=== PATIENT | female | born 1990 | race American Indian/Alaskan Native ===

== ENCOUNTER 2019-12-12 07:59 | Emergency (ER) | payer MEDICAID, SELFPAY ==
[2019-12-12 08:03] VITALS: BP 110/55; PULSE 80; RESP 20; TEMP 36.2; O2SAT 98
--- NOTE | 2019-12-12 08:15 | DI.US_ITS ---
EXAM: US PELVIS TRANSVAGINAL CLINICAL HISTORY: Left side pelvic pain TECHNIQUE: Ultrasound performed using standard protocol. COMPARISON: No exams were available for comparison FINDINGS: Pelvic ultrasound was performed transabdominally and transvaginally. Please see the accompanying wilner a sheet for measurements of the pelvic structures. Kidneys have normal appearance on limited scanning. The ovaries have a normal follicular appearance. There are couple of apparent calcifications noted i n the right ovary, nonspecific. No ovarian enlargement or vascular flow abnormality seen. No free fluid in the cul-de-sac. Uterus has a heterogeneous appearance of the myometrium. Endometrial stripe is about 9 millimeters i n thickness. Some nabothian cysts are noted. Lower uterine segment septated cyst may represent nabo thian cyst or degenerated fibroid. IMPRESSION: No evidence of acute pelvic process. DATA REPOSITORY:
--- NOTE | 2019-12-12 08:24 | ED.GENADUL_ITS ---
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 Return to ED sooner if any worsening or concerns. Increase oral fluids. Please take Tylenol or Ibuprofen with food every 4-6 hours as needed for pain and swelling. Your placed on a follow-up callback list for case management to help establish primary care provider and discuss community resources. Medical Decision Making 29-year-old homeless female presents with left lower quadrant abdominal pain which began approximately 45 minutes ago. She states she has a history of ovarian cyst and uterine fibroids. Denies any vaginal bleeding or vaginal discharge. No dysuria. Denies any nausea vomiting does report some soft stools. 0955: Spoke with Dr. Mcdowell regarding pelvic US. WNL, no ovarian cyst per radiologist. 1002: Patient re-evaluated. Is in no acute distress, patient sleeping. Vital signs stable, breathing eupneic. Exam(s) a US:US pelvis & transvaginal EXAM: US PELVIS TRANSVAGINAL CLINICAL HISTORY: Left side pelvic pain TECHNIQUE: Ultrasound performed using standard protocol. COMPARISON: No exams were available for comparison FINDINGS: Pelvic ultrasound was performed transabdominally and transvaginally. Please see the accompanying data sheet for measurements of the pelvic structures. Kidneys have normal appearance on limited scanning. The ovaries have a normal follicular appearance. There are couple of apparent calcifications noted in the right ovary, nonspecific. No ovarian enlargement or vascular flow abnormality seen. No free fluid in the cul-de-sac. Uterus has a heterogeneous appearance of the myometrium. Endometrial stripe is about 9 millimeters in thickness. Some nabothian cysts are noted. Lower saranya rine segment septated cyst may represent nabothian cyst or degenerated fibroid. IMPRESSION: No evidence of acute pelvic process. DATA REPOSITORY: Ordered By: Reyna Ennis CC: 1130: On patient re-evaluation, she is complaining of itching noted to her face and legs. It is requesting the Benadryl. Benadryl 25 mg p.o. ordered. She also is requesting food and to discuss options with case management doing due to being homeless. Care management called and left voicemail. The patient denies any recent foreign travel or contact with recent immigrants, Travelers, or peoples of [place] or [facility]. The patient denies any recent travel to high risk countries or high risk areas in the [place], or other areas of noted or significant coronavirus infection. At this time I feel patient is safe for discharge, given instructions for abdominal pain discussed strict return instructions and red flags including worsening pain, fever nausea vomiting diarrhea. She was placed on care management call list to establish PCP. Given community connection phone number for community resources. Urine is negative for leukocytes or nitrites, CBC and CMP are both within normal limits no leukocytosis. Pelvic ultrasound is within normal limits as well. Differential diagnosis includes diverticulitis, small bowel obstruction, gastroenteritis, UTI, menstrual cramps, ovarian cyst, uterine fibroids. Lab Data Lab results reviewed: Yes I reviewed the patient's lab results. HPI General Mode of arrival: ambulatory . Date/Time Provider Initiated Documentation: 12/12/19 08:09 . Limitations to Documentation: no limitations . Information obtained by: patient . HPI Narrative: 29-year-old homeless female presents with left lower quadrant abdominal pain which began approximately 45 minutes ago. She states she has a history of ovarian cyst and uterine fibroids. Denies any vaginal bleeding or vaginal discharge. No dysuria. Denies any nausea vomiting does report some soft stools. 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 HEENT: Denies trauma, headaches, blurry vision, nasal discharge, sore throat, trouble swallowing. Chest: Denies chest pain, palpitations, irregular rhythm, hypertension. Respiratory: Denies Shortness of breath, cough, hemoptysis. GI: Denies nausea, vomiting, diarrhea, constipation. : Denies dysuria, hematuria, positive left lower quadrant abdominal pain. Neuro: Denies dizziness, blurry vision, weakness, syncope, headache or facial numbness. Hematologic: Denies easy bruising, intolerance to heat or cold, hair loss. [facility] Social History Smoking/Tobacco Use Status: Current every day Tobacco Type: cigarettes Alcohol Intake: current Alcohol Intake frequency: a few times a week Drug use: Daily Substance use type: marijuana Do you feel safe in your relationship?: Yes Additional Social history: homeless Exam Narrative Exam Narrative: Constitutional: Allert and oriented x3. Appears stated age. Normal body habitus. Head: Normocephalic, no trauma. Eyes: Pupils PERRLA, Red reflex noted, EOM's intact. Eyelids symmetrical withour lesions, discharge, or swelling. ENT: Bilateral TM's WNL, External ear normal to inspection, no mastoid TTP, swelling, or erythema, Nasal turbinates WNL, no nasal discharge. Normal dentition, Posterior pharynx WNL, no exudate. Chest: RRR, Normal S1, S2, distal pulses intact. Resp: Lungs clear to auscultation bilaterally, no wheezes, rales, or rhonchi. GI: Left lower quadrant TTP abdomen soft bowel sounds hypoactive. Musculoskeletal: Normal gait, 5/5 strength to all four extremities. Skin: No suspicious rashes or lesions. Capillary refill ?2 sec. Neurologic: Cranial nerves II-XII intact. Alert and oriented x 3. DTR's intact. Hematologic/Lymphatic: No ecchymosis, no lymphadenopathy. Course Vital Signs Vital signs: Vital Signs Temperature 36.2 C L 12/12/19 08:03 Pulse 80 12/12/19 08:03 Respiratory Rate 20 12/12/19 08:03 Blood Pressure 110/55 L 12/12/19 08:03 Pulse Oximetry 98 12/12/19 08:03 Temperature 36.2 C L 12/12/19 08:03 Temperature Source Temporal Artery Scan 12/12/19 08:03 Pulse 80 12/12/19 08:03 Respiratory Rate 20 12/12/19 08:03 Respiratory Effort Non-Labored 12/12/19 08:08 Blood Pressure 110/55 L 12/12/19 08:03 Blood Pressure Position Sitting 12/12/19 08:03 Pulse Oximetry 98 12/12/19 08:03 Oxygen Delivery Method Room Air 12/12/19 08:03 Oxygen Flow Rate 0 12/12/19 08:03 Pain Level 10 12/12/19 08:08
[2019-12-12] MEDS: Ondansetron 4 MG/2 ML VIAL IVP (08:34)
[2019-12-12] MEDS: Normal Saline Flush 10 ML SYR IVP (08:35)
[2019-12-12] MEDS: Normal Saline 1,000 ML 1000 ML IV ×2 (08:35→10:27)
[2019-12-12 08:52] LABS: Abs Immature Grans 0.03 k/cumm (0.0-0.09); Absolute Basophil Count 0.02 k/cumm (0.0-0.2); Absolute Eosinophil Count 0.24 k/cumm (0.0-0.7); Absolute Lymphocyte Count 2.44 k/cumm (1.2-3.4); Absolute Monocyte Count 0.65 k/cumm (0.11-0.7); Absolute Neutrophil Count 4.39 k/cumm (1.2-6.7); Basophils % 0.3; Eosinophils % 3.1; HCT 42.3 % (36.0-46.0); Immature Grans % 0.4 %; Lymphocytes % 31.4; Mean Corp. HGB Concentration 33.1 g/dL (32.0-36.0); Mean Corpuscular Hemoglobin 29.6 pg (27.0-33.0); Mean Corpuscular Volume 89.4 fL (80-95); Mean Platelet Volume 9.9 fL (8.0-11.0); Monocytes % 8.4; Neutrophils % 56.4; Platelet Count 330 x1000/uL (130-400); RBC 4.73 m/cumm (4.00-5.20); RBC Distribution Width 14.7 % (11.7-14.6); White Blood Cell Count 7.77 k/cumm (4.4-10.8)
[2019-12-12 09:34] VITALS: PULSE 57; RESP 18; TEMP 36.6
[2019-12-12 09:40] VITALS: PULSE 57; RESP 18; TEMP 36.6; O2SAT 97
--- NOTE | 2019-12-12 09:40 | NUR.NOTE ---
Nursing Note: Pt states she is still having pain but feels the morphine may be kicking in. Requesting a tablet to listen to music. no acute distress noted. call light in reach. Still awaiting urine specimen-pt states she voided while at CT but was unable to provide a sample. will continue to monitor.
--- NOTE | 2019-12-12 10:02 | NUR.NOTE ---
Nursing Note: This RN and [employer]EN[employer] Reyna went in to speak to patient. Pt is noted to be sleeping and appears in no distress. Will continue to monitor.
[2019-12-12 10:07] LABS: ALT 24 U/L (14-59); AST 21 U/L (15-37); Albumin 3.9 g/dL (3.4-5.0); Alkaline Phosphatase 68 U/L (46-116); Anion Gap 9.9 mmol/L (3-11); BUN 7 mg/dL (7-18); Bilirubin, Total 0.4 mg/dL (0.2-1.0); CO2 27.1 mmol/L (21.0-32.0); CREATININE 0.78 mg/dL (0.55-1.02); Calcium 8.8 mg/dL (8.5-10.1); Chloride 104 mmol/L (98-107); Glucose 83 mg/dL (74-106); Potassium 3.8 mmol/L (3.5-5.1); Sodium 141 mmol/L (136-145); Total Protein 7.1 g/dL (6.4-8.2)
[2019-12-12 11:06] VITALS: BP 108/48; PULSE 67; RESP 18; O2SAT 100
[2019-12-12 11:37] LABS: Bilirubin Negative (Negative); Blood Negative (Negative); Clarity Clear (Clear); Glucose Negative (Negative); Ketones Negative (Negative); Leukocyte Esterase Negative (Negative); Nitrite Negative (Negative); Urobilinogen 0.2 EU/dL (Up TO 0.2); pH 7.5 (5-8)
[2019-12-12] MEDS: diphenhydrAMINE 25 MG CAP PO (11:47)
== END 2019-12-12 12:03 | disposition home or self-care (01) ==
PROVIDERS: Emergency Provider Registered Nurse Emergency
DX: R10.32 Left lower quadrant pain (principal); L29.8 Other pruritus; Z59.0 Homelessness
CPT/HCPCS: 80053; 81025; 96361; 96374; 96375; 99285; 76830; 76856; 81003; 85025; 99284; J2405

== ENCOUNTER 2019-12-15 20:50 | Emergency (ER) | payer MEDICAID, SELFPAY ==
--- NOTE | 2019-12-15 20:45 | DI.CT_ITS ---
EXAM: CT ABDOMEN PELVIS W CT ABDOMEN PELVIS W CLINICAL HISTORY: <right lower abdominal pain> right lower abdominal pain TECHNIQUE: COMPARISON: No exams were available for comparison FINDINGS: CT examination of the abdomen and pelvis was performed with bolus infusion of 100 cc of Omnipaque 350 . Images obtained through the lung bases are unremarkable. The liver and spleen appear normal as does the pancreas. Gallbladder and bile ducts are unremarkable. Adrenals appear normal bilaterally. Kidneys appear normal with no evidence of renal mass, hydronephro sis, or nephrolithiasis There is no evidence of abdominal or pelvic adenopathy. Abdominal aorta is of normal diameter and no major vascular abnormality is seen. Appendix is normal. No evidence diverticulitis or bowel obstruction. No significant abdominal wall hernia seen. Archeology Faculty Member structures are unremarkable. Impression: Negative examination of the abdomen and pelvis. DATA REPOSITORY: All CT scans at this facility are submitted to the National Radiology Data Registry (NRDR) Dose Index Registry (DIR) with the [employer] (ACR). RADIATION OPTIMIZATION: All CT scans at this facility use at least one of these dose optimization te chniques: automated exposure control; mA and/or kV adjustment per patient size (includes targeted exa ms where dose is matched to clinical indication); or iterative reconstruction.
[2019-12-15 20:50] VITALS: BP 129/75; PULSE 75; RESP 20; TEMP 36.9; O2SAT 97
--- NOTE | 2019-12-15 20:58 | W.ED.GENAD ---
Discharge Plan Disposition Patient Disposition: HOME Condition: Stable Discharge Details Chief Complaint: Abd Prob Clinical Impression: Abdominal pain Primary Care Provider: Unknown,Unknown ED Provider: Solomon Win Home Meds and New Rx's Prescriptions: New ondansetron 4 mg tablet,disintegrating 4 mg PO Q8H PRN (Reason: nausea and vomiting) Qty: 30 RF: 0 No Action No Known Home Meds RF: 0 Discharge Instructions Instructions: Abdominal Pain (ED) Additional Instructions: your blood work and cat scan did not show any concerning findings follow up with your primary care provider within 1-2 weeks if you feel your pain significantly worsens, have high fevers or persistent vomit return to the emergency department Medical Decision Making 29 yo female who has no chronic medical problems but does have history of prior c sections, ovarian cysts and uterine fibroids per patient, who uses marijuana daily otherwise no drug use per patient, comes in with chief complaint of 1 hour of abdominal pain in the right lower abdomen that she states feels like her prior ovarian cysts.She was seen 3 days ago and had a negative u/s for ovarian pathology, no cysts at that time. Her pain resolved and came back an hour ago. Denies fevers, vomit, vaginal bleeding or d/c. She has no upper abdominal tenderness and has tenderness without guarding in the right lower abdomen. Unlikely cyst or abscess given negative u/s 3 days ago. Will obtain labs and imaging to eval for pathology such as appendicitis vs pancreatitis. pt now sleeping and has no tenderness on exam, negative labs and imaging. Feel likely psychosomatic pain vs spasm of muscle wall. Will d/c and advised f/u with pcp, return precautions given Differential Diagnosis Differential Diagnosis: appendicitis, psychosomatic pain, pancreatitis Medical Records Medical records reviewed: Yes I reviewed the patient's medical records. Imaging Data Radiologic Study: Attestation: I personally reviewed and interpreted this imaging study as follows: Imaging: CT Scan Radiologist's impression: no acute findings Lab Data Lab results reviewed: Yes I reviewed the patient's lab results. HPI General Mode of arrival: ambulatory. Date/Time Provider Initiated Documentation: 12/15/19 20:53. Limitations to Documentation: no limitations. Information obtained by: patient. History of Present Illness 29 year old F presents to the emergency department with the chief complaint of abdominal pain, described as moderate and severe, Quality is described as stabbing, and is localized to the abdomen. Patient reports no radiation. Patient started experiencing this hour(s) (1) and it has been constant. No relieving factors improve symptom(s), No exacerbating factors reported . Patient notes other (nausea); denies fever/chills. Patient did receive the following treatments prior to arrival, none Related Data Home Medications Medication Instructions Recorded Confirmed Unknown [No Known Home Meds] 12/15/19 12/15/19 ondansetron 4 mg PO Q8H PRN #30 tab 12/15/19 Previous Rx's Medication Instructions Recorded ondansetron 4 mg PO Q8H PRN #30 tab 12/15/19 Allergies Allergy/AdvReac Type Severity Reaction Status Date / Time Penicillins Allergy Severe Unverified 12/12/19 08:07 Beta-Blockers Allergy Hives Unverified 12/12/19 08:08 (Beta-Adrenergic Bloc General Stated Complaint: Abd Prob MARYANN: 3 Review of Systems All systems reviewed & are unremarkable except as noted in HPI and below Constitutional Constitutional: Denies chills, Denies fever(s) and Denies weakness Cardiovascular Cardiovascular: Denies chest pain and Denies dyspnea Respiratory Respiratory: Denies cough and Denies dyspnea Gastrointestinal Gastrointestinal: Denies vomiting Musculoskeletal Musculoskeletal: Denies joint swelling Neurologic Neurologic: Denies weakness Psychiatric Psychiatric: Denies depression [facility] Medical History (Updated 12/15/19 @ 22:08 by Solomon Win MD) Arthritis (Acute) Depression (Chronic) PTSD (post-traumatic stress disorder) (Acute) Social History Smoking/Tobacco Use Status: Current every day Tobacco Type: cigarettes Alcohol Intake: current Alcohol Intake frequency: a few times a week Drug use: Daily Substance use type: marijuana Do you feel safe at home: Yes Do you feel safe in your relationship?: Yes Additional Social history: homeless Exam Const General: no acute distress Orientation: alert HENMT Head: normal to inspection Ears: external ears normal General nose exam: external nose normal Mouth: moist mucous membranes Eyes General: appearance normal, both eyes and all related structures Neck Neck: normal visual inspection Resp Effort & Inspection: normal respiratory effort and able to speak in complete sentences Cardio Rate: regular rate GI Palpation: soft and tender Skin General skin exam: no rashes or lesions noted Neuro General: patient alert and patient oriented x3 Extrem General: normal to inspection Psych Mental Status: mental status grossly normal Course Vital Signs Vital signs: Vital Signs Temperature 36.9 C 12/15/19 20:50 Pulse 75 12/15/19 20:50 Respiratory Rate 20 12/15/19 20:50 Blood Pressure 129/75 12/15/19 20:50 Pulse Oximetry 97 12/15/19 20:50 Temperature 36.9 C 12/15/19 20:50 Temperature Source Temporal Artery Scan 12/15/19 20:50 Pulse 75 12/15/19 20:50 Respiratory Rate 20 12/15/19 20:50 Respiratory Effort Non-Labored 12/15/19 20:53 Blood Pressure 129/75 12/15/19 20:50 Pulse Oximetry 97 12/15/19 20:50 Oxygen Delivery Method Room Air 12/15/19 20:50 Oxygen Flow Rate 0 12/15/19 20:50 Pain Level 10 12/15/19 20:53
[2019-12-15] MEDS: Normal Saline Flush 10 ML SYR IVP (21:12)
[2019-12-15] MEDS: Normal Saline 1,000 ML 1000 ML IV (21:12)
[2019-12-15] MEDS: Ketorolac 15 MG/ML VIAL IVP (21:12)
[2019-12-15] MEDS: Prochlorperazine 10 MG/2 ML VIAL IVP (21:12)
[2019-12-15 21:13] LABS: Abs Immature Grans 0.05 k/cumm (0.0-0.09); Absolute Basophil Count 0.01 k/cumm (0.0-0.2); Absolute Eosinophil Count 0.39 k/cumm (0.0-0.7); Absolute Monocyte Count 0.57 k/cumm (0.11-0.7); Basophils % 0.1; Eosinophils % 3.6; HGB 14.3 g/dL (12.0-15.5); Immature Grans % 0.5 %; Lymphocytes % 26.1; Mean Corpuscular Hemoglobin 30.4 pg (27.0-33.0); Mean Corpuscular Volume 89.4 fL (80-95); Mean Platelet Volume 11.3 fL (8.0-11.0); Monocytes % 5.3; Neutrophils % 64.4; Platelet Count 128 x1000/uL (130-400); RBC Distribution Width 14.2 % (11.7-14.6); White Blood Cell Count 10.72 k/cumm (4.4-10.8)
[2019-12-15 21:40] LABS: Bilirubin Negative (Negative); Blood Trace-intact (Negative); Clarity Clear (Clear); Glucose Negative (Negative); Ketones Negative (Negative); Leukocyte Esterase Negative (Negative); Nitrite Negative (Negative); Urobilinogen 0.2 EU/dL (Up TO 0.2)
[2019-12-15 21:50] LABS: ALT 21 U/L (14-59); AST 15 U/L (15-37); Albumin 3.7 g/dL (3.4-5.0); Alkaline Phosphatase 62 U/L (46-116); Anion Gap 7.4 mmol/L (3-11); BUN 8 mg/dL (7-18); Bilirubin, Direct 0.11 mg/dL (0.00-0.20); Bilirubin, Total 0.3 mg/dL (0.2-1.0); CO2 27.6 mmol/L (21.0-32.0); CREATININE 0.72 mg/dL (0.55-1.02); Calcium 8.9 mg/dL (8.5-10.1); Chloride 105 mmol/L (98-107); Glucose 88 mg/dL (74-106); Lipase 61 U/L (73-393); Potassium 3.6 mmol/L (3.5-5.1); Sodium 140 mmol/L (136-145); Total Protein 6.8 g/dL (6.4-8.2)
--- NOTE | 2019-12-15 21:54 | DI.VRAD_ITS ---
PROCEDURE INFORMATION: Exam: CT Abdomen And Pelvis With Contrast Exam date and time: 12/15/2019 8:59 PM Age: 29 years old Clinical indication: Localized; Right lower quadrant (rlq); Patient HX: Right lower abdominal pain TECHNIQUE: Imaging protocol: Computed tomography of the abdomen and pelvis with intravenous contrast. COMPARISON: US PELVIS TRANSVAGINAL 12/12/2019 8:53 AM FINDINGS: Liver: Normal. No mass. Gallbladder and bile ducts: No gallstones or biliary tract disease. Pancreas: Normal pancreas. Spleen: Normal. No splenomegaly. Adrenals: Normal. No mass. Kidneys and ureters: No renal calculi or hydronephrosis. Renal parenchyma enhances normally. No inflammatory features. Stomach and bowel: There is minor fluid retention within the small bowel loops. No bowel edema or obstructive features. Colon is unremarkable. There is formed feces and air in the colon. No edema. Appendix: A normal appendix is visible on series 4, images 63 through 70. Intraperitoneal space: Unremarkable. No free air. No significant fluid collection. Vasculature: Unremarkable. No abdominal aortic aneurysm. Lymph nodes: Unremarkable. No enlarged lymph nodes. Bladder: Unremarkable as visualized. Reproductive: Unremarkable as visualized. Bones/joints: Unremarkable. No acute fracture. Soft tissues: No abdominal wall hernia. IMPRESSION: 1. Normal appendix. 2. No renal calculi or hydronephrosis. 3. No gallstones or biliary dilatation. 4. No acute findings of the abdomen or pelvis. Dictated and Authenticated by: Michael Fernandez MD. Ordering:KEVIN Carbajal MD
[2019-12-15 21:55] LABS: Bacteria Negative HPF (Negative); C & S Indicated? No; Casts Negative LPF (Negative); Crystals Negative HPF (Negative); Epithelial Cells Negative HPF (Negative); Mucus Negative (Negative); Other Cells Negative (Negative); RBC 0-2 HPF (0-2); WBC 0-2 HPF (0-5)
[2019-12-15 22:52] VITALS: BP 129/75; PULSE 75; RESP 20; TEMP 36.9; O2SAT 97
--- NOTE | 2020-02-13 12:00 | CMACTNOTE_ITS ---
- If Service Date Differs Date of service: 12/12/19 Time of Service: 12:00 Care Management Activity Note CM coordinates referral to [facility] to assist patient in establishing care with a primary care physician.
== END 2019-12-15 22:50 | disposition home or self-care (01) ==
LOC: ER 22:53
PROVIDERS: Emergency Provider Emergency Medicine
DX: R10.31 Right lower quadrant pain (principal)
CPT/HCPCS: 36415; 80053; 81025; 83690; 96361; 96374; 96375; 99285; 74177; 81003; 81015; 82247; 82248; 85025; 99284; J0780; J1885

== ENCOUNTER 2020-02-24 13:33 | Emergency (ER) | payer MEDICAID, SELFPAY ==
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
[2020-02-24 13:42] VITALS: BP 151/105; PULSE 72; RESP 20; TEMP 36.8; O2SAT 99
--- NOTE | 2020-02-24 14:00 | DI.CT_ITS ---
EXAM: CT ABDOMEN PELVIS W INDICATION: RLQ pain. COMPARISON: CT CT ABDOMEN PELVIS W from 12/15/2019 TECHNIQUE: FINDINGS: CT examination of the abdomen and pelvis was performed with a bolus infusion of 100 cc of Omnipaque 3 50. Images obtained through the lung bases are unremarkable. Liver, spleen and pancreas appear normal . Gallbladder and bile ducts are CT normal. Adrenals and kidneys are unremarkable. Urinary bladder has a thickened wall, please correlate regard ing the possibility cystitis. Abdominal aorta is of normal diameter and no major vascular abnormality is seen. No abdominal wall hernia. No abdominal or pelvic adenopathy. C D STRIPPER structures appear intact. Appendix is normal. No evidence of diverticulitis or bowel obstruction. Mild small bowel dilatation and thickening in left upper quadrant, nonspecific, enteritis not exclu ded. IMPRESSION: Question cystitis. Please correlate clinically. RADIATION DOSE DELIVERED: 778.97mGy.cm Total DLP
[2020-02-24 14:09] LABS: Bilirubin Small (Negative); Blood Large (Negative); Clarity Cloudy (Clear); Glucose Negative (Negative); Ketones Trace mg/dL (Negative); Leukocyte Esterase Small (Negative); Nitrite Negative (Negative)
[2020-02-24 14:16] LABS: Abs Immature Grans 0.01 k/cumm (0.0-0.09); Absolute Basophil Count 0.01 k/cumm (0.0-0.2); Absolute Eosinophil Count 0.17 k/cumm (0.0-0.7); Absolute Lymphocyte Count 1.95 k/cumm (1.2-3.4); Absolute Monocyte Count 0.76 k/cumm (0.11-0.7); Absolute Neutrophil Count 7.14 k/cumm (1.2-6.7); Basophils % 0.1; Eosinophils % 1.7; HCT 41.8 % (36.0-46.0); HGB 13.9 g/dL (12.0-15.5); Immature Grans % 0.1 %; Lactate 2.1 mmol/L (0.6-1.4); Lymphocytes % 19.4; Mean Corp. HGB Concentration 33.3 g/dL (32.0-36.0); Mean Corpuscular Hemoglobin 29.6 pg (27.0-33.0); Mean Corpuscular Volume 89.1 fL (80-95); Mean Platelet Volume 10.5 fL (8.0-11.0); Monocytes % 7.6; Neutrophils % 71.1; Platelet Count 238 x1000/uL (130-400); RBC 4.69 m/cumm (4.00-5.20); RBC Distribution Width 13.1 % (11.7-14.6); White Blood Cell Count 10.04 k/cumm (4.4-10.8)
[2020-02-24 14:18] LABS: Bacteria Moderate HPF (Negative); C & S Indicated? Yes; RBC >50 HPF (0-2); WBC >50 HPF (0-5)
[2020-02-24] MEDS: Lactated Ringers 1,000 ML 1000 ML IV ×2 (14:20→15:13)
[2020-02-24] MEDS: MORPHine 10 MG/ML VIAL 2 MG IVP ×2 (14:20→15:13)
[2020-02-24] MEDS: Ondansetron 4 MG/2 ML VIAL IVP (14:20)
[2020-02-24] MEDS: Normal Saline Flush 10 ML SYR IVP ×2 (14:20→14:58)
[2020-02-24 14:40] LABS: ALT 22 U/L (14-59); AST 14 U/L (15-37); Albumin 3.7 g/dL (3.4-5.0); Alkaline Phosphatase 60 U/L (46-116); Anion Gap 6.4 mmol/L (3-11); BUN 11 mg/dL (7-18); Bilirubin, Total 0.5 mg/dL (0.2-1.0); CO2 27.6 mmol/L (21.0-32.0); CREATININE 0.95 mg/dL (0.55-1.02); Calcium 8.9 mg/dL (8.5-10.1); Chloride 104 mmol/L (98-107); Glucose 118 mg/dL (74-106); Lipase 58 U/L (73-393); Potassium 3.7 mmol/L (3.5-5.1); Sodium 138 mmol/L (136-145); Total Protein 6.8 g/dL (6.4-8.2)
[2020-02-24] MEDS: Omnipaque 350 MG/ML 100 ML BTL IJ (14:58)
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
[2020-02-24] MEDS: Cephalexin 500 MG CAP PO (16:12)
[2020-02-24] MEDS: Phenazopyridine 100 MG TAB PO (16:43)
[2020-02-24 16:57] VITALS: BP 119/59; PULSE 65; TEMP 37; O2SAT 100
[2020-02-25 10:26] LABS: HIV-1/2 Ag & Ab Screen Negative (Negative)
[2020-02-27 13:59] LABS: Chlamydia Result Negative (Negative); GC Result Negative (Negative)
--- NOTE | 2020-03-02 08:40 | ED.FU.B_ITS ---
Date of service: 03/02/20 Time of Service: 08:40 Follow Up Plan: Culture positive for trichomonas and Gardnerella patient received cephalexin 500 mg twice daily during visit. Needs Flagyl 1 g p.o. once. At this time an antibiotic was not called into pharmacy due to unknown preferred pharmacy. There is no phone number on file for patient so a certified letter was sent with results and instructions to contact [facility] ED.
--- NOTE | 2020-03-30 13:29 | NUR.NOTE ---
Nursing Note: Patient was seen on 02/24/2020. Vag path result came back on patient, no phone number in chart so a letter was sent to her. On this date the letter was returned to the ED as Return to Sender, attempted, not known, unable to forward. At this point unable to contact patient. Dr. Maycol Aleman is aware that the letter returned and stated no more attempts to be made. Cecily West.
== END 2020-02-24 16:59 | disposition home or self-care (01) ==
PROVIDERS: Emergency Provider Physician Assistant
DX: N76.0 Acute vaginitis (principal); B96.89 Other specified bacterial agents as the cause of diseases classified elsewhere; A59.01 Trichomonal vulvovaginitis; N30.01 Acute cystitis with hematuria; E86.0 Dehydration; Z91.410 Personal history of adult physical and sexual abuse; I10 Essential (primary) hypertension
CPT/HCPCS: 36415; 80053; 83690; 87077; 87389; 87491; 87591; 96361; 96374; 96375; 96376; 99285; 74177; 81003; 81015; 83605; 85025; 87086; 87186; 87480; 87510; 87660; J2405; J3490

== ENCOUNTER 2020-05-14 03:47 | Emergency (ER) | payer MEDICAID, SELFPAY ==
[2020-05-14 03:51] VITALS: BP 129/84; PULSE 96; RESP 30; TEMP 37.1; O2SAT 99
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
--- NOTE | 2020-05-14 04:00 | DI.RAD_ITS ---
EXAM: XR ANKLE RT COMPLETE CLINICAL HISTORY: trauma TECHNIQUE: 2D digital imaging was performed. COMPARISON: No exams were available for comparison FINDINGS: There is mild spurring at the Achilles insertion on the calcaneus. No fracture or ankle mortise wid ening is seen. The talar dome appears intact. IMPRESSION: No acute abnormality.
--- NOTE | 2020-05-14 04:10 | NUR.NOTE ---
Nursing Note: Brought patient to the bathroom via wheelchair.
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
--- NOTE | 2020-05-14 04:45 | DI.VRAD_ITS ---
PROCEDURE INFORMATION: Exam: XR Right Ankle Exam date and time: 05/14/2020 4:26 AM Age: 29 years old Clinical indication: Pain; Right; Patient HX: PT states she rolled her ankle, hears popping when moving ankle joint TECHNIQUE: Imaging protocol: XR Right ankle. Views: 3 or more views. COMPARISON: No relevant prior studies available. FINDINGS: Bones/joints: Normal. Soft tissues: Normal. IMPRESSION: No acute findings. Dictated and Authenticated by: Solomon Reed MD. Ordering:SHON Nguyen MD
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
[2020-05-14] MEDS: Ibuprofen 800 MG TAB PO (05:00)
== END 2020-05-14 05:01 | disposition home or self-care (01) ==
PROVIDERS: Emergency Provider Emergency Medicine
DX: S93.491A Sprain of other ligament of right ankle, initial encounter (principal); X50.9XXA Other and unspecified overexertion or strenuous movements or postures, initial encounter
CPT/HCPCS: 29515; 99284; 73610; 73630; 99283; L4361

== ENCOUNTER 2020-05-15 01:30 | Emergency (ER) | payer MEDICAID, SELFPAY ==
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
[2020-05-15 01:50] VITALS: BP 131/87; PULSE 73; RESP 16; TEMP 36.6; O2SAT 99
[2020-05-15 02:43] VITALS: BP 131/87; PULSE 73; RESP 16; TEMP 36.6; O2SAT 99
== END 2020-05-15 02:35 | disposition home or self-care (01) ==
LOC: ER 02:38
PROVIDERS: Emergency Provider Emergency Medicine
DX: R20.0 Anesthesia of skin (principal); R45.1 Restlessness and agitation; Z71.1 Person with feared health complaint in whom no diagnosis is made
CPT/HCPCS: 99283

== ENCOUNTER 2020-05-17 11:15 | Emergency (ER) | payer MEDICAID, SELFPAY ==
[2020-05-17 11:14] VITALS: BP 117/74; PULSE 84; RESP 20; TEMP 36.7; O2SAT 96
--- NOTE | 2020-05-17 11:30 | DI.RAD_ITS ---
EXAM: XR KNEE RT 4V+ CLINICAL HISTORY: Pain, fall 2 days ago, walking boot making worse TECHNIQUE: COMPARISON: No exams were available for comparison FINDINGS: Four views were obtained. No fracture is seen. IMPRESSION: RADIATION DOSE DELIVERED: Total DLP
--- NOTE | 2020-05-17 11:47 | ED.GENADUL_ITS ---
Discharge Plan Disposition Patient Disposition: HOME Condition: Stable Discharge Details Chief Complaint: Orthopedic Clinical Impression: Knee pain Primary Care Provider: Unknown,Unknown ED Provider: Marquise Rossi Home Meds and New Rx's Prescriptions: No Action ibuprofen 800 mg tablet 800 mg PO Q8H PRNQty: 20 RF: 0 Discharge Instructions Instructions: Knee Pain (ED) Additional Instructions: X-ray of your knee is unremarkable for any obvious bony abnormality. Your ER visit did not reveal any emergent process. I had you placed on the orthopedic callback list to help expedite your outpatient care. I will give you the name and number of Dr. Whelan you may contact his office personally. I have also requested that our care management team evaluate your situation, please follow their instructions for additional help for resources. They recommend that she go directly to economic services and apply for resources and services. Watch for new or worsening symptoms and return to the ER for any concerns. Rest, elevate, cool compresses as tolerated. Wear walking boot, use crutches, and wear Ralf wrap as needed, advance activity as tolerated. Discharge Data Discharge Date/Time-TO BE ENTERED AT DEPARTURE: 05/17/20 15:34 Medical Decision Making 29-year-old female presents for right knee pain, concerned that she may have dislocated her patella. She appears disheveled but in no acute distress. Blood pressure 117/74, pulse 84, patient afebrile. She does have a walking boot, is wearing a sandal on her foot while in the walking boot. She is demanding food, drink, morphine. I explained to her that there is no indication for morphine. She was upset began yelling at me. I personally saw her drinking water and britt ilia and also ordered her a sandwich. I do believe that there is some secondary gain to her visit today and she does lack local social resources. Given this I have requested the care management and evaluate the patient as well. I was told that she would not talk with care management. I went in the room and she reports that she was too dehydrated to speak, I reminded her that she was able to speak with me without difficulty, she began interacting with care management of difficulty. I will obtain x-ray of the right knee however low suspicion for acute bony abnormality. X-ray of the right knee read by me and confirmed by radiology as unremarkable. Care management evaluated the patient, please see their note. Patient once again requested morphine, I again declined and explained that there is no indication. We discussed treatment plan. Patient will continue wearing a walking boot however not wearing a sandal inside the walking boot. She was given crutches with teaching. She was placed on the orthopedic callback list to help expedite outpatient care for her knee and ankle pain. We have arranged a ride for her to go to economic services so that she may apply for additional resources. Upon discharge patient was yelling at me telling me that she wanted a lunch tray. She appears well, nontoxic, no clinical signs of dehydration. She is in no acute distress. HPI General Mode of arrival: EMS . Date/Time Provider Initiated Documentation: 05/17/20 11:20 . Limitations to Documentation: no limitations . Information obtained by: patient and EMS . HPI Narrative: This is a 29-year-old female who reports that she sprained her ankle on the , was seen in the ER at that time, had a negative x-ray and was placed into a walking boot. Since that time this has changed her gait and she is now experiencing right knee pain, she feels as though her right kneecap may have dislocated earlier today. She denies falling or twisting mechanism. She is able to ambulate and bear weight. She is requesting a morphine shot, food, and water. She reports the pain is moderate, worse with movement or bearing weight. She was wearing a sandal with in her walking boot. She tells me that she is currently homeless and has been staying at a local hotel. She believes that she could use crutches but was not prescribed them. She denies any fever, redness, swelling, numbness, tingling, weakness. She is a rather vague and elusive historian. She also tells me that she is concerned that she may be dehydrated because she has not been drinking much water but has had normal urinary output. Again she is requesting water. She changes the tone of her voice during her HPI and states this is because her mouth is very dry. Denies any pain or swelling in her calf. Denies history of DVT or PE. Related Data Home Medications Medication Instructions Recorded Confirmed ibuprofen 800 mg PO Q8H PRN #20 tab 05/14/20 05/17/20 Previous Rx's Medication Instructions Recorded ibuprofen 800 mg PO Q8H PRN #20 tab 05/14/20 Allergies Allergy/AdvReac Type Severity Reaction Status Date / Time Penicillins Allergy Severe Unverified 05/17/20 11:26 Beta-Blockers Allergy Hives Unverified 05/17/20 11:26 (Beta-Adrenergic Bloc General Stated Complaint: Orthopedic MARYANN: 4 Review of Systems Constitutional Constitutional: Denies fever(s) and Denies weakness Cardiovascular Cardiovascular: Denies chest pain and Denies dyspnea Respiratory Respiratory: Denies dyspnea Gastrointestinal Gastrointestinal: Denies abdominal pain, Denies nausea and Denies vomiting Musculoskeletal Musculoskeletal: Reports arthralgias, Reports joint swelling, Denies numbness and Denies tingling Integumentary/Breasts Skin/Breast: Denies rash Neurologic Neurologic: Denies numbness, Denies tingling and Denies weakness [facility] Medical History Arthritis (Acute) Depression (Chronic) PTSD (post-traumatic stress disorder) (Acute) Social History Smoking/Tobacco Use Status: Current every day Tobacco Type: cigarettes Smoking packs per day: 1.5 Smoking cigarettes per day: 30.0 Alcohol Intake: current Alcohol Intake frequency: a few times a week Drug use: Daily Substance use type: marijuana Do you feel safe in your relationship?: Yes Additional Social history: homeless smells of urine Exam Const General: comfortable, no acute distress, disheveled and other (Argumentative) Orientation: alert, awake and oriented x3 HENMT Head: normal to inspection, normocephalic and atraumatic Mouth: moist mucous membranes Eyes Conjunctivae: conjunctivae normal Sclera: sclerae normal Neck Neck: normal visual inspection, full ROM, trachea midline and supple Resp Effort & Inspection: normal respiratory effort and able to speak in complete sentences Auscultation: clear to auscultation bilaterally Cardio Rate: regular rate Rhythm: regular rhythm GI Palpation: soft and nontender Back/Spine/Pelvis Back: No back tenderness Skin General skin exam: no rashes or lesions noted Neuro General: patient alert, patient awake, patient oriented x3, moves all extremities and no focal motor deficits Speech: other (Patient able to speak normally however changes her voice while speaking) Gait: antalgic Motor: muscle tone normal throughout and strength 5/5 throughout Sensory Exam: no sensory deficits noted Extrem Right upper extremity: normal to inspection, full ROM and normal capillary refill Left upper extremity: normal to inspection, full ROM and normal capillary refill Right lower extremity: full ROM, normal capillary refill, knee Details: normal to inspection, tenderness (Diffuse mild), normal ROM and knee ligament exam normal; no swelling, no abrasions, no ecchymosis and no crepitus, lower leg Details: normal to inspection and other (Negative Homans sign); no erythema and no tenderness and ankle Details: abnormal to inspection, tenderness, swelling, normal ROM, ecchymosis and other (Over the lateral malleolus) Left lower extremity: normal to inspection, full ROM and normal capillary refill Psych Appearance: grossly normal Mental Status: mental status grossly normal Course Vital Signs Vital signs: Vital Signs Temperature 36.7 C 05/17/20 11:14 Pulse 84 05/17/20 11:14 Respiratory Rate 20 05/17/20 11:14 Blood Pressure 117/74 05/17/20 11:14 Pulse Oximetry 96 05/17/20 11:14 Temperature 36.7 C 05/17/20 11:14 Temperature Source Skin 05/17/20 11:14 Pulse 84 05/17/20 11:14 Respiratory Rate 05/17/20 11:14 Respiratory Effort 05/17/20 11:26 Blood Pressure 117/74 05/17/20 11:14 Pulse Oximetry 96 05/17/20 11:14 Oxygen Delivery Method Room Air 05/17/20 11:14 Oxygen Flow Rate 0 05/17/20 11:14 Pain Level 10 05/17/20 11:22
--- NOTE | 2020-05-17 13:21 | CMPROGNOTE_ITS ---
- If Service Date Differs Date of service: 05/17/20 Time of Service: 13:21 Care Management Progress Note At the request of ED provider, WARREN meets with Natividad to assess needs. Natividad is appropriate but speaks softly and is difficult to understand. She demands water, food and morphine. She reports she was staying with a boyfriend but things didn't work out, so she is currently homeless. She states she is aware of local resources but cannot access them because she doesn't have a telephone. WARREN provides her with a list of food shelves/free meals in the community. At her request, WARREN also contacts [employer] to inquire as to the status of a motel voucher, which she states she has already applied for. After being on hold for approximately 45 minutes, WARREN speaks with Harriet of [employer] and is told she does not see that Natividad has completed an application for a voucher for emergency housing. Natividad will need to go directly to the [facility] office to apply since she does not have access to a telephone. WARREN also contacts [facility] to arrange a ride from the ED to Economic Services.
== END 2020-05-17 15:34 | disposition home or self-care (01) ==
PROVIDERS: Emergency Provider Physician Assistant
DX: M25.561 Pain in right knee (principal); Z59.0 Homelessness
CPT/HCPCS: 99283; 73564; E0114

== ENCOUNTER 2020-05-26 18:23 | Emergency (ER) | payer MEDICAID, SELFPAY ==
[2020-05-26 18:30] VITALS: BP 130/65; PULSE 75; RESP 18; TEMP 36.8; O2SAT 99
--- NOTE | 2020-05-26 18:58 | ED.GENADUL_ITS ---
Discharge Plan Disposition Patient Disposition: HOME Condition: Stable Discharge Details Chief Complaint: Orthopedic Clinical Impression: Knee pain, right Primary Care Provider: Unknown,Unknown ED Provider: Maycol Aleman Home Meds and New Rx's Prescriptions: No Action ibuprofen 800 mg tablet 800 mg PO Q8H PRNQty: 20 RF: 0 Discharge Instructions Instructions: Knee Pain (ED) Additional Instructions: Please follow-up with your primary care physician. Please follow-up with orthopedics as previously recommended. Please contact your primary care physician to arrange follow-up. Take ibuprofen as prescribed. Return to the ER for any worsening or new concerning symptoms. Medical Decision Making 29-year-old female who is been seen here now 4 times over the past couple weeks, initially seen with right foot and ankle injury, has been wearing orthopedic boot, not using crutches, now complaining of right knee pain with patellar sub luxation. Patient's knee is tender on palpation. She has no inflammatory changes of the knee. Ankle and toe injuries appear to be healed that she is no longer having pain and is nontender. Patient is requesting knee immobilizer which I think may be beneficial given her discomfort and patellar subluxation. She was advised to use a crutches that she has been provided. Patient will be provided ibuprofen. Patient is quite anxious and tearful. I believe she is currently having difficulty with housing and financial hardship. I will request that care management reach out to the patient to assist with her social situation. HPI General Mode of arrival: ambulatory . Date/Time Provider Initiated Documentation: 05/26/20 18:46 . Limitations to Documentation: no limitations . Information obtained by: patient . HPI Narrative: 29-year-old female presents for the fourth visit over the past month. Today she is complaining of right knee pain. She notes she has chronic intermittent right knee pain. She states that her patella intermittently dislocates. She is specifically requesting a hinged knee brace. She notes that the walking boot that she has been wearing for the past couple weeks is causing her to have worsening pain. I believe she was given this boot for prior ankle and toe injury. Her ankle and toe are no longer hurting. Pain today is moderate to severe. It is localized to anterior knee. There is no posterior knee or posterior lower leg pain. She denies associated fever. Patient does note significant life stressors recently. Related Data Home Medications Medication Instructions Recorded Confirmed ibuprofen 800 mg PO Q8H PRN #20 tab 05/14/20 05/26/20 Previous Rx's Medication Instructions Recorded ibuprofen 800 mg PO Q8H PRN #20 tab 05/14/20 Allergies Allergy/AdvReac Type Severity Reaction Status Date / Time Penicillins Allergy Severe Unverified 05/26/20 18:35 Beta-Blockers Allergy Hives Unverified 05/26/20 18:35 (Beta-Adrenergic Bloc General Stated Complaint: Orthopedic MARYANN: 4 Review of Systems Constitutional Constitutional: Denies fever(s) and Denies weakness Musculoskeletal Musculoskeletal: Reports as per HPI Neurologic Neurologic: Denies sensory deficit and Denies weakness [facility] Medical History Arthritis (Acute) Depression (Chronic) PTSD (post-traumatic stress disorder) (Acute) Social History Smoking/Tobacco Use Status: Current every day Tobacco Type: cigarettes Smoking packs per day: 1.5 Smoking cigarettes per day: 30.0 Alcohol Intake: current Alcohol Intake frequency: a few times a week Drug use: Daily Substance use type: marijuana Do you feel safe in your relationship?: Yes Additional Social history: homeless Exam Const General: cooperative HENMT Mouth: moist mucous membranes Eyes Sclera: normal sclerae Neck Neck: trachea midline and supple Resp Auscultation: clear to auscultation bilaterally, no rales, no rhonchi and no wheezes Cardio Rate: regular rate and not tachycardic Rhythm: regular rhythm Skin General skin exam: no rashes or lesions noted Neuro General: patient alert, patient awake and tone normal Extrem General: no edema Right lower extremity: knee Details: tenderness Location: of the patella and abnormal ROM Details: pain with passive ROM during Details: in flexion; no swelling, no ecchymosis, no deformity and no unusual warmth, lower leg Details: no edema; no erythema and no tenderness, ankle Details: no tenderness and no swelling and foot Details: other (No swelling); no tenderness Psych Appearance: disheveled Affect: anxious affect Attitude: cooperative Course Vital Signs Vital signs: Vital Signs Temperature 36.8 C 05/26/20 18:30 Pulse 75 05/26/20 18:30 Respiratory Rate 18 05/26/20 18:30 Blood Pressure 130/65 05/26/20 18:30 Pulse Oximetry 99 05/26/20 18:30 Temperature 36.8 C 05/26/20 18:30 Temperature Source Skin 05/26/20 18:30 Pulse 75 05/26/20 18:30 Respiratory Rate 18 05/26/20 18:30 Respiratory Effort Non-Labored 05/26/20 18:32 Blood Pressure 130/65 05/26/20 18:30 Blood Pressure Position Supine 05/26/20 18:30 Pulse Oximetry 99 05/26/20 18:30 Oxygen Delivery Method Room Air 05/26/20 18:30 Oxygen Flow Rate 0 05/26/20 18:30 Pain Level 10 05/26/20 18:30
[2020-05-26] MEDS: Ibuprofen 600 MG TAB PO (19:15)
--- NOTE | 2020-05-26 19:56 | NUR.NOTE ---
Nursing Note: 4referal sent to 05/26/20
== END 2020-05-26 19:30 | disposition home or self-care (01) ==
LOC: ER 19:22
PROVIDERS: Emergency Provider Student in an Organized Health Care Education/Training Program
DX: M25.561 Pain in right knee (principal)
CPT/HCPCS: 29505; 99283; L1810

== ENCOUNTER 2022-01-13 12:25 | Emergency (ER) | payer MEDICAID, SELFPAY ==
--- NOTE | 2022-01-13 12:30 | DI.US_ITS ---
Exam(s) US PELVIS TRANSVAGINAL EXAM: US PELVIS TRANSVAGINAL CLINICAL HISTORY: severe RLQ pain, r/o ovarian torsion/cyst rupture TECHNIQUE: Transabdominal and transvaginal imaging was performed using standard protocol. COMPARISON: CT CT ABDOMEN PELVIS W from 02/24/2020 FINDINGS: KIDNEYS: Kidneys are symmetric in size. No evidence of renal calculi. No evidence of hydronephrosis. No renal mass or cyst identified. UTERUS: Anteverted. Endometrium: 10 millimeters. Small fluid collections within the endometrium. History of endometrial ablation. Myometrium: Unremarkable. Cervix: Unremarkable. OVARIES: Right: Cyst or mass: 3.5 centimeter maximal dimension simple cyst. Left: Cyst or mass: None. DOPPLER: Color: Symmetric and uniform flow to both ovaries. No hyperemia. Duplex: Normal ovarian arterial waveforms visualized. CUL-DE-SAC: Free fluid: None. IMPRESSION: 1. Small fluid collections within the endometrium. This may be secondary to prior endometrial ablati on. 2. 3.5 centimeter right ovarian cyst. No evidence of torsion or cyst rupture. DATA REPOSITORY:
[2022-01-13 12:34] VITALS: BP 111/67; PULSE 75; RESP 16; TEMP 36.8; O2SAT 100
--- NOTE | 2022-01-13 12:43 | W.ED.GENAD ---
Discharge Plan Disposition Patient Disposition: HOME Condition: Stable Discharge Details Clinical Impression: Ovarian cyst, Bacterial vaginosis Primary Care Provider: Lucina Tomas ED Provider: Kristan Gonzalez Home Meds and New Rx's Prescriptions: New metronidazole 500 mg tablet 500 mg PO BID 7 Days Qty: 14 0RF Continued ibuprofen 800 mg tablet 800 mg PO Q8H PRNQty: 20 0RF Discharge Instructions Instructions: Bacterial Vaginosis (ED), Ovarian Cyst (ED) Additional Instructions: Your ultrasound imaging today noted evidence of an ovarian cyst. This is likely the source of your pain. One of your vaginal swabs was positive for bacterial vaginosis which is not a sexually transmitted infection but is a vaginal infection that is treated with antibiotics. It is recommended that you alternate Tylenol and Motrin as needed and directed for pain. You are being sent home with 2 tabs of tramadol to take as needed and directed for pain not relieved with Tylenol or Motrin. You are also being sent home with a prescription for Flagyl which is an antibiotic used to treat bacterial vaginosis. Call [facility] to schedule a follow-up appointment for reevaluation within the next 1 to 2 weeks. Return to the emergency department with any worsening or new concerning symptoms. Referrals: [facility] [place] [Provider Group] Discharge Data Discharge Physician: Kristan Gonzalez Medical Decision Making 1240 -- 31-year-old female with a history ovarian rupture, uterine cyst, endometrial ablation, section and tubal ligation presents with sudden onset of right lower quadrant suprapubic pain that started 1 hour ago prior to arrival. The patient appears uncomfortable and restless. Her vitals are within normal limits. Abdomen is soft but minimally tender in the suprapubic and right lower quadrant. Differential diagnosis includes ovarian cyst, ovarian rupture, ovarian torsion, bacterial vaginosis, UTI. History and presentation does not appear consistent with appendicitis at this time as she has had no GI symptoms and her symptoms appear consistent with previous ovarian cyst rupture. Will refer for labs and pelvis/transvaginal ultrasound. If pain persists and imaging negative, will refer for CT imaging. We will give fluids and Toradol and reassess. 1315 -- patient denies any relief in pain. A dose of Dilaudid has been ordered. Pelvic ultrasound performed at bedside and noted white vaginal discharge but no cervical motion tenderness, adnexal mass or tenderness. 1400 -- patient reassessed and she feels better. 1445 --patient reassessed and she states her pain is returning after having her ultrasound. Patient given another dose of Dilaudid with relief. Ultrasound noted a 3.5 cm right ovarian cyst without evidence of rupture or torsion. There is also small fluid collection within the endometrium which may be secondary to prior endometrial ablation. Vaginal pathogen screen positive for Gardnerella and prescription for Flagyl given. Will send home with 2 tabs of tramadol to take as needed and directed for pain not relieved with Tylenol or ibuprofen. Patient advised to call [facility] for follow-up. Discussed with patient that if she has sudden worsening of symptoms such as worsening pain, persistent vomiting or fever, to return immediately to the emergency department for reevaluation. Medical Records Medical records reviewed: Yes I reviewed the patient's medical records. Imaging Data Radiologic Study: Radiologist's impression: US PELVIS ? TRANSVAGINAL CLINICAL HISTORY:? severe RLQ pain, r/o ovarian torsion/cyst rupture TECHNIQUE:? Transabdominal and transvaginal imaging was performed using standard protocol. COMPARISON:? CT CT ABDOMEN ? PELVIS W from 02/24/2020 FINDINGS: KIDNEYS: Kidneys are symmetric in size. No evidence of renal calculi. No evidence of hydronephrosis. No renal mass or cyst identified. UTERUS: Anteverted. Endometrium: 10 millimeters.? Small fluid collections within the endometrium.? History of endometrial? ablation. Myometrium: Unremarkable. Cervix: Unremarkable. OVARIES: Right: Cyst or mass: 3.5 centimeter maximal dimension simple cyst. Left: Cyst or mass: None. DOPPLER: Color: Symmetric and uniform flow to both ovaries. No hyperemia. Duplex: Normal ovarian arterial waveforms visualized. CUL-DE-SAC: Free fluid: None. IMPRESSION: 1. Small fluid collections within the endometrium.? This may be secondary to prior endometrial ablation. 2. 3.5 centimeter right ovarian cyst.? No evidence of torsion or cyst rupture.? Lab Data Lab results reviewed: Yes I reviewed the patient's lab results. Labs: 01/13/22 14:00 Vaginal Vaginitis Screen - Pending Laboratory Tests Range/Units 01/13/22 01/13/22 01/13/22 12:45 13:02 13:02 WBC (4.4-10.8) 10^3/uL 7.01 RBC (3.93-5.22) 10^6/uL 4.87 Hgb (11.2-15.7) g/dL 14.4 Hct (36.0-46.0) % 43.5 MCV (80-95) fL 89.3 MCH (27.0-33.0) pg 29.6 MCHC (32.0-36.0) % 33.1 RDW (11.7-14.6) % 13.8 Plt Count (130-400) 10^3/uL 301 MPV (8.0-11.0) fL 9.9 Immature Gran % 0.4 Neutrophils % 52.4 Lymphocytes % 38.2 Monocytes % 7.0 Eosinophils % 1.6 Basophils % 0.4 Nucleated RBC % (0.0-0.3) % 0.0 Absolute Neutrophils (1.2-6.7) 10^3/uL 3.67 Absolute Lymphocytes (1.2-3.4) 10^3/uL 2.68 Absolute Monocytes (0.1-0.8) 10^3/uL 0.49 Absolute Eosinophils (0.0-0.7) 10^3/uL 0.11 Absolute Basophils (0.0-0.2) 10^3/uL 0.03 Sodium (136-145) mmol/L 138 Potassium (3.5-5.1) mmol/L 3.7 Chloride (98-107) mmol/L 104 Carbon Dioxide (21.0-32.0) mmol/L 26.8 Anion Gap (3-11) mmol/L 7.2 BUN (7-18) mg/dL 10 Creatinine (0.55-1.02) mg/dL 0.7 Estimated GFR/1.73 m2 (mL/min/1.73m2) >= 60.00 Glucose (74-106) mg/dL 71 L Calcium (8.5-10.1) mg/dL 9.4 Total Bilirubin (0.2-1.0) mg/dL 0.5 AST (15-37) U/L 17 ALT (14-59) U/L 21 Alkaline Phosphatase (46-116) U/L 63 Total Protein (6.4-8.2) g/dL 7.5 Albumin (3.4-5.0) g/dL 4.0 Urine Color (Yellow) Dark Yellow Urine Clarity (Clear) Sl Cloudy Urine pH (5-8) 6.5 Ur Specific Lester (1.005-1.025) >= 1.030 H Urine Protein (Negative) mg/dL Negative Urine Ketones (Negative) mg/dL Negative Urine Blood (Negative) Negative Urine Nitrite (Negative) Negative Urine Bilirubin (Negative) Small H Urine Urobilinogen (Up TO 0.2) EU/dL 0.2 Ur Leukocyte Esterase (Negative) Negative Urine Glucose (Negative) mg/dL Negative HPI General Mode of arrival: ambulatory. Date/Time Provider Initiated Documentation: 01/13/22 12:30. Limitations to Documentation: no limitations. Information obtained by: patient. HPI Narrative: Patient is a 31-year-old female with a history of ovarian cyst with rupture, uterine cyst with history of endometrial ablation, tubal ligation who presents with sudden onset of right lower quadrant and suprapubic pain that started 1 hour ago. She denies any symptoms prior to this. She states her symptoms feel similar to when she has had an ovarian cyst rupture in the past. She states she otherwise has been feeling well and denies any recent fever, nausea, vomiting, urinary symptoms or change in bowel habits. She took 900 mg of gabapentin prior to arrival. Related Data Home Medications Medication Instructions Recorded Confirmed ibuprofen 800 mg tablet 800 mg PO Q8H PRN #20 tab 05/14/20 01/13/22 metronidazole 500 mg tablet 500 mg PO BID 7 Days #14 tab 01/13/22 Previous Rx's Medication Instructions Recorded ibuprofen 800 mg tablet 800 mg PO Q8H PRN #20 tab 05/14/20 metronidazole 500 mg tablet 500 mg PO BID 7 Days #14 tab 01/13/22 Allergies Allergy/AdvReac Type Severity Reaction Status Date / Time Penicillins Allergy Severe Unverified 01/13/22 12:39 Beta-Blockers Allergy Hives Unverified 01/13/22 12:39 (Beta-Adrenergic Bloc General Stated Complaint: [employer] MARYANN: 3 Review of Systems All systems reviewed & are unremarkable except as noted in HPI and below Constitutional Constitutional: Denies chills, Denies excessive sweating, Denies fatigue, Denies fever(s), Denies weakness and Denies weight loss Eyes Eyes: Reports system reviewed and no additional complaints, except as documented and Denies blurry vision ENT Ears, Nose, Mouth, and Throat: Denies vertigo, Denies dizziness, Denies otalgia, Denies nasal congestion, Denies sore throat and Denies throat swelling Cardiovascular Cardiovascular: Denies chest pain, Denies syncope, Denies rapid heart rate and Denies dyspnea Respiratory Respiratory: Denies chest congestion, Denies cough, Denies pain on inspiration and Denies dyspnea Gastrointestinal Gastrointestinal: Reports abdominal pain, Denies diarrhea and Denies vomiting Genitourinary Genitourinary: Denies hematuria, Denies dysuria and Denies flank pain Musculoskeletal Musculoskeletal: Denies back pain and Denies joint swelling Integumentary/Breasts Skin/Breast: Denies lesions and Denies rash Neurologic Neurologic: Denies behavioral changes, Denies confusion, Denies vertigo, Denies dizziness, Denies syncope, Denies localized weakness and Denies weakness Psychiatric Psychiatric: Denies behavioral changes, Denies confusion and Denies depression Endocrine Endocrine: Denies excessive sweating and Denies fatigue Hematologic/Lymphatic Hematologic/Lymphatic: Denies easy bruising and Denies lymphadenopathy Allergic/Immunologic Allergic/Immunologic: Denies throat swelling PFSH All Active Problems (Updated 01/13/22 @ 15:24 by Kritsan Gonzalez DO) Ovarian cyst (Acute) Bacterial vaginosis (Acute) Medical History (Updated 01/13/22 @ 15:24 by Kristan Gonzalez DO) Arthritis Depression Ovarian cyst PTSD (post-traumatic stress disorder) Surgical History (Updated 01/13/22 @ 12:55 by Kristan oGnzalez DO) H/O section History of bilateral tubal ligation History of endometrial ablation Social History Smoking/Tobacco Use Status: Current every day Tobacco Type: cigarettes Smoking packs per day: 1.5 Smoking cigarettes per day: 30.0 Smoking risk assessment performed?: Yes Alcohol Intake: current Alcohol Intake frequency: a few times a week Drug use: Daily Substance use type: marijuana Do you feel safe at home: Yes Do you feel safe in your relationship?: Yes Additional Social history: homeless Exam Const General: cooperative and uncomfortable Orientation: alert, awake and oriented x3 HENMT Head: normal to inspection Ears: hearing grossly normal bilaterally, external ears normal and TM's normal bilaterally General nose exam: external nose normal Face and sinus: normal facial exam Mouth: oral mucosae normal Teeth and gingiva: dentition normal Throat: posterior oropharynx normal Eyes General: appearance normal, both eyes and all related structures Eyelids: eyelids normal Pupils: PERRL EOM: EOM intact bilaterally Neck Neck: normal visual inspection Lymphatic: no lymphadenopathy noted Chest Chest: normal inspection of the chest Resp Effort & Inspection: normal respiratory effort and able to speak in complete sentences Auscultation: clear to auscultation bilaterally Cardio Rate: regular rate Rhythm: regular rhythm GI Inspection: normal to inspection Palpation: soft, not firm, no guarding, no hepatosplenomegaly, no masses and tender in the RLQ and suprapubicly Auscultation: normal bowel sounds Abdomen image: 1. Mild to moderate tenderness to palpation. Back/Spine/Pelvis Back: no CVA tenderness Skin General skin exam: no rashes or lesions noted Neuro General: patient alert and patient awake Cognition: normal cognition Speech: speech normal Gait: normal gait Motor: muscle tone normal throughout Sensory Exam: no sensory deficits noted Extrem General: normal to inspection, full ROM and capillary refill normal Psych Appearance: grossly normal Mental Status: mental status grossly normal Speech and Movement: speech and movement normal Affect: normal affect Thought Process: normal Course Vital Signs Vital signs: Vital Signs Temperature 98.2 F 01/13/22 12:34 Pulse 75 01/13/22 12:34 Respiratory Rate 16 01/13/22 12:34 Blood Pressure 111/67 01/13/22 12:34 Pulse Oximetry 100 01/13/22 12:34 Temperature 98.2 F 01/13/22 12:34 Temperature Source Temporal Artery Scan 01/13/22 12:34 Pulse 75 01/13/22 12:34 Respiratory Rate 16 01/13/22 12:34 Respiratory Effort 01/13/22 12:37 Blood Pressure 111/67 01/13/22 12:34 Blood Pressure Position Sitting 01/13/22 12:34 Pulse Oximetry 100 01/13/22 12:34 Oxygen Delivery Method Room Air 01/13/22 12:34 Oxygen Flow Rate 0 01/13/22 12:34 Pain Level 8 01/13/22 12:34 PAWSS Have you Been Recently Intoxicated or Drunk Within the Last 30 days?: Yes Have you Ever Experienced Previous Episodes of Alcohol Withdrawal?: Yes Have you ever Experienced Withdrawal Seizures?: No Have you ever Experienced Delirium Tremens(DT)s?: Yes Have you ever undergone Alcohol Rehabilitation Treatment (i.e, inpt ot outpatient treatment programs)?: Yes Have you ever Experienced Blackouts?: Yes Have you ever Combined Alcohol with other Downers within the last 90 days?: No Have you ever Combined Alcohol with any other Substance of Abuse during the last 90 days?: Yes Positive Blood Alcohol level on Presentation? [PCS.BAL]: No Result: 7
[2022-01-13 12:52] LABS: Bilirubin Small (Negative); Blood Negative (Negative); Clarity Sl Cloudy (Clear); Glucose Negative (Negative); Ketones Negative (Negative); Leukocyte Esterase Negative (Negative); Nitrite Negative (Negative); Specific Gravity >= 1.030 (1.005-1.025); Urobilinogen 0.2 EU/dL (Up TO 0.2); pH 6.5 (5-8)
[2022-01-13] MEDS: Ketorolac 30 MG/ML VIAL IVP (13:03)
[2022-01-13] MEDS: Normal Saline 1,000 ML 1000 ML IV (13:03)
[2022-01-13 13:10] LABS: Abs Immature Grans 0.03 10^3/uL (0.0-0.06); Absolute Basophil Count 0.03 10^3/uL (0.0-0.2); Absolute Eosinophil Count 0.11 10^3/uL (0.0-0.7); Absolute Lymphocyte Count 2.68 10^3/uL (1.2-3.4); Absolute Monocyte Count 0.49 10^3/uL (0.1-0.8); Absolute Neutrophil Count 3.67 10^3/uL (1.2-6.7); Basophils % 0.4; Eosinophils % 1.6; HCT 43.5 % (36.0-46.0); HGB 14.4 g/dL (11.2-15.7); Immature Grans % 0.4; Lymphocytes % 38.2; MCH 29.6 pg (27.0-33.0); MCHC 33.1 % (32.0-36.0); MCV 89.3 fL (80-95); MPV 9.9 fL (8.0-11.0); Neutrophils % 52.4; Platelet Count 301 10^3/uL (130-400); RBC 4.87 10^6/uL (3.93-5.22); RDW 13.8 % (11.7-14.6); WBC 7.01 10^3/uL (4.4-10.8)
[2022-01-13 13:41] LABS: ALT 21 U/L (14-59); AST 17 U/L (15-37); Alkaline Phosphatase 63 U/L (46-116); Anion Gap 7.2 mmol/L (3-11); BUN 10 mg/dL (7-18); Bilirubin, Total 0.5 mg/dL (0.2-1.0); CO2 26.8 mmol/L (21.0-32.0); CREATININE 0.7 mg/dL (0.55-1.02); Calcium 9.4 mg/dL (8.5-10.1); Chloride 104 mmol/L (98-107); Glucose 71 mg/dL (74-106); Potassium 3.7 mmol/L (3.5-5.1); Sodium 138 mmol/L (136-145); Total Protein 7.5 g/dL (6.4-8.2)
[2022-01-13] MEDS: HYDROmorphone 2 MG/ML VIAL 1 MG IVP ×2 (13:48→15:13)
--- NOTE | 2022-01-13 14:10 | NUR.NOTE ---
Nursing Note: Pt resting on stretcher, reports dilaudid effective for pain control, awaiting u/s.
[2022-01-13 15:03] VITALS: BP 119/69; PULSE 62; RESP 16; TEMP 36.8; O2SAT 100
[2022-01-13] MEDS: Normal Saline Flush 10 ML SYR IVP (15:14)
== END 2022-01-13 15:33 | disposition home or self-care (01) ==
PROVIDERS: Emergency Provider Physician Assistant; PCP Nurse Practitioner
DX: N83.291 Other ovarian cyst, right side (principal); N76.0 Acute vaginitis; R10.31 Right lower quadrant pain
CPT/HCPCS: 36415; 80053; 81025; 87491; 87591; 96374; 96375; 96376; 99284; 76830; 76856; 81003; 85025; 87480; 87510; 87660; J1885

== ENCOUNTER 2022-02-02 01:02 | Emergency (ER) | payer MEDICAID, SELFPAY ==
[2022-02-02 01:01] VITALS: BP 131/89; PULSE 108; RESP 22; TEMP 36.4; O2SAT 98
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
== END 2022-02-02 02:20 | disposition other institution (70) ==
PROVIDERS: Emergency Provider Emergency Medicine
DX: F10.129 Alcohol abuse with intoxication, unspecified (principal); S49.81XA Other specified injuries of right shoulder and upper arm, initial encounter; W18.39XA Other fall on same level, initial encounter
CPT/HCPCS: 99285; 73000; 73030; 99283

== ENCOUNTER 2022-02-03 04:24 | Emergency (ER) | payer MEDICAID, SELFPAY ==
[2022-02-03 04:25] VITALS: BP 129/109; PULSE 68; RESP 18; TEMP 36.6; O2SAT 95
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
[2022-02-03] MEDS: Ketorolac 30 MG/ML VIAL IM (04:59)
--- NOTE | 2022-02-03 05:15 | DI.RAD_ITS ---
Exam(s) XR SHOULDER RT COMPLETE 2+V EXAM: XR SHOULDER RT COMPLETE 2+V CLINICAL HISTORY: continued shoulder pain. TECHNIQUE: 2D digital imaging was performed. COMPARISON: CR,XR XR SHOULDER RT COMPLETE 2+V from 02/02/2022 FINDINGS: Five views There is no evidence of fracture or dislocation. No abnormal soft tissue calcifications. Subacromia l space unremarkable. No degenerative changes. Adjacent ribs unremarkable. IMPRESSION: No significant findings DATA REPOSITORY: RADIATION DOSE DELIVERED:
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
== END 2022-02-03 06:39 | disposition home or self-care (01) ==
PROVIDERS: Emergency Provider Emergency Medicine
DX: S49.81XA Other specified injuries of right shoulder and upper arm, initial encounter (principal); X58.XXXA Exposure to other specified factors, initial encounter; F10.129 Alcohol abuse with intoxication, unspecified
CPT/HCPCS: 99285; 71046; 72125; 73030; 99283; J1885

== ENCOUNTER 2022-07-13 04:17 | Emergency (ER) | payer MEDICAID, SELFPAY ==
--- NOTE | 2022-07-13 04:15 | RT.EKG_ITS ---
APPROVED REPORT Exam: Resting ECG Reason for Exam: chest pain Patient Location: E HR:84 bpm ECG Measurements Heart Rate 84 AXIS AL 154 P 57 QRSd 85 QRS 83 QT 372 T 33 QTc 441 Conclusion Sinus rhythm...normal P axis, V-rate 60- 99 sinus rhythm, normal axis, normal intervals, non ischemic
[2022-07-13 04:25] VITALS: BP 117/72; PULSE 93; RESP 18; TEMP 37; O2SAT 100
--- NOTE | 2022-07-13 04:39 | ED.GENADUL_ITS ---
Discharge Plan Disposition Patient Disposition: HOME Condition: Stable Discharge Details Clinical Impression: Skin lesions Primary Care Provider: Unknown,Unknown ED Provider: Florin Bradley Home Meds and New Rx's Prescriptions: New clindamycin HCl 300 mg capsule 300 mg PO QID 5 Days Qty: 20 0RF No Action ibuprofen 800 mg tablet 800 mg PO Q8H PRNQty: 20 0RF Discharge Instructions Instructions: Cellulitis (ED) Additional Instructions: Please keep wound clean and dry. Please take antibiotics as prescribed. Please return for any worsening symptoms. Medical Decision Making 31-year-old female history of SVT status post ablation presents endorsing multiple skin lesions over the past several weeks to months, endorses that she is being bit by spiders; had brief nonexertional chest pain earlier this evening. No active chest pain no respiratory distress hemodynamically stable afebrile nontoxic multiple subacute appearing shallow ulcerations to skin of face arms and lower extremities as well as buttocks, some surrounding induration and erythema, no fluctuance. Skin lesions appear to be the result of skin picking and/or skin popping. Lower suspicion for insect bite. No evidence of deep space infection such as abscess. Patient be given anti-inflammatory as well as dose of antibiotics to cover strep and staph as well as MRSA. Home care instructions and return precautions given. HPI General Date/Time Provider Initiated Documentation: 07/13/22 04:21 . HPI Narrative: 31-year-old female history of SVT status post ablation, presents with multiple skin lesions present over the past several weeks to months, endorses being evaluated at outside facility and having nothing done, thinks she may been bitten by a spider and after which she developed chest pain. Related Data Home Medications Medication Instructions Recorded Confirmed ibuprofen 800 mg tablet 800 mg PO Q8H PRN #20 tabs 05/14/20 02/03/22 clindamycin HCl 300 mg capsule 300 mg PO QID 5 days #20 caps 07/13/22 Previous Rx's Medication Instructions Recorded ibuprofen 800 mg tablet 800 mg PO Q8H PRN #20 tabs 05/14/20 clindamycin HCl 300 mg capsule 300 mg PO QID 5 days #20 caps 07/13/22 Allergies Allergy/AdvReac Type Severity Reaction Status Date / Time Penicillins Allergy Severe Unverified 07/13/22 04:32 Beta-Blockers Allergy Hives Unverified 07/13/22 04:32 (Beta-Adrenergic Bloc General Stated Complaint: Chest/Rib MARYANN: 3 Review of Systems Narrative: Review of Systems Constitutional: negative Eyes: negative ENT: negative Cardiovascular: Chest pain Respiratory: negative Gastrointestinal: negative : negative Musculoskeletal: negative Skin: Skin lesions Neurologic: negative Psych: negative PFSH All Active Problems (Updated 07/13/22 @ 04:43 by Florin Bradley MD) Skin lesions (Acute) Medical History Arthritis Depression Ovarian cyst PTSD (post-traumatic stress disorder) Surgical History H/O section History of bilateral tubal ligation History of endometrial ablation Social History Smoking/Tobacco Use Status: Current every day Tobacco Type: cigarettes Smoking packs per day: 1.5 Smoking cigarettes per day: 30.0 Smoking risk assessment performed?: Yes Alcohol Intake: current Alcohol Intake frequency: a few times a week Drug use: Daily Substance use type: marijuana Do you feel safe at home: Yes Do you feel safe in your relationship?: Yes Additional Social history: homeless Exam Narrative Exam Narrative: Physical Examination General: alert, awake, cooperative, anxious appearing HEENT: normocephalic, atraumatic; PERRL, EOM intact, conjunctiva normal; no nasal discharge; moist mucous membranes, oral and pharyngeal mucosa normal, tolerating secretions Neck: supple, trachea midline; full ROM Chest: normal to inspection Respiratory: normal respiratory effort, speaking in full sentences, clear to auscultation, no wheezing, rales or rhonchi Cardiac: regular rate, regular rhythm, S1S2 intact, no murmurs rubs or gallops GI: abdomen soft, non-tender, non-distended; no palpable mass or hepatosplenomegaly Skin: Multiple shallow ulcerations on skin involving face arms lower extremity and buttock some with surrounding induration and erythema, no fluctuance Neuro: AAOx3, normal speech, moving all extremities Psych: Anxious, tearful Course Vital Signs Vital signs: Vital Signs Temperature 37.0 C 07/13/22 04:25 Pulse 93 H 07/13/22 04:25 Respiratory Rate 18 07/13/22 04:25 Blood Pressure 117/72 07/13/22 04:25 Pulse Oximetry 100 07/13/22 04:25 Temperature 37.0 C 07/13/22 04:25 Temperature Source Temporal Artery Scan 07/13/22 04:25 Pulse 93 H 07/13/22 04:25 Respiratory Rate 18 07/13/22 04:25 Respiratory Effort 07/13/22 04:30 Blood Pressure 117/72 07/13/22 04:25 Blood Pressure Position Supine 07/13/22 04:25 Pulse Oximetry 100 07/13/22 04:25 Oxygen Delivery Method Room Air 07/13/22 04:25 Oxygen Flow Rate 0 07/13/22 04:25 Pain Level 3 07/13/22 04:25
[2022-07-13] MEDS: Ketorolac 15 MG/ML VIAL IM (04:45)
[2022-07-13] MEDS: Clindamycin 300 MG CAP PO (04:45)
== END 2022-07-13 04:50 | disposition home or self-care (01) ==
PROVIDERS: Emergency Provider Emergency Medicine
DX: L98.418 Non-pressure chronic ulcer of buttock with other specified severity; L97.828 Non-pressure chronic ulcer of other part of left lower leg with other specified severity; L97.818 Non-pressure chronic ulcer of other part of right lower leg with other specified severity; L98.498 Non-pressure chronic ulcer of skin of other sites with other specified severity
CPT/HCPCS: 93005; 96372; 99284; 93010; J1885

== ENCOUNTER 2022-12-03 00:29 | Emergency (ER) | payer MEDICAID, SELFPAY ==
--- NOTE | 2022-12-03 00:32 | ED.GENADUL_ITS ---
Discharge Plan Disposition Patient Disposition: Home Condition: Stable Discharge Details Clinical Impression: Encounter for medical assessment, Alcohol intoxication Primary Care Provider: Unknown,Unknown ED Provider: Bob Brock Home Meds and New Rx's Prescriptions: No Action ibuprofen 800 mg tablet 800 mg PO Q8H PRNQty: 20 0RF Discharge Instructions Additional Instructions: At this time you have been refusing our exam. However you have been deemed medically stable and there is no evidence of acute life-threatening etiology on our clinical assessment. He will be monitored in police custody, mental health will evaluate you after you have reached clinical sobriety. If you notice any worsening of your symptoms, or any new symptoms such as vomiting, diarrhea, feve r, chills, shortness of breath, chest pain, numbness, weakness, or fainting , please return immediately to the emergency department for reevaluation. Please follow up with your primary care provider as soon as possible for reassessment and reevaluation. As always, it was a pleasure participating in your medical care today. Medical Decision Making This is a 32-year-old female with a past medical history of tubal ligation, endometrial ablation, regular alcohol abuse, who presents today for evaluation for medical assessment. Patient was drinking notable amount of alcohol this evening, please were called for disturbance. She was brought to the police facility however while there she told police that she demand medical evaluation because these handcuffs are too tight. Patient was then brought to the emergency department for medical assessment after requesting medical assessment. Patient demonstrates a tirade of expletives towards myself and staff, and is very limited on what she is willing to discuss for history, however she does state that she is here to be medically checked, and have my handcuffs loosened. Patient also states that she refuses to speak with me and answer questions while her mask is on, however she has no challenges launching a notable tirade of expletives towards myself, staff, and the police at bedside. Patient has no other complaints at this time. Physical exam demonstrates an intoxicated female who is notably physically and verbally aggressive. She is swinging and slamming into police officers and EMS and a notably confrontational, hostile, and violent way even in spite of being handcuffed. Here in the emergency department she is hurling a notable amount of expletives at myself and staff, mostly focused on cultural, sexual orientation, and racial expletives towards us. Her complaint is primarily her handcuffs being too tight. Physical exam shows no signs of vascular compromise whatsoever. Heart rate is in the 90s on auscultation. Pulse oximetry was attempted multiple times, however she would thrash her head around in an effort to remove the ear oximeter, and she would clasp her fingers together to avoid the pulse oximeter being placed on her hands, and she would pick at rest whenever we tried to place one on her feet. She shows no signs of hypoxemia, blue coloration, or other signs of respiratory distress whatsoever. Physical exam shows no evidence of trauma to her chest back head or neck. No signs of significant traumatic abnormality. She shows no focal neurologic deficit, she is able to move all extremities well, she is able to ambulate well with a normal gait. No wide-based gait or ataxic gait. No facial droop. After spending 15 minutes speaking with the patient, performing the most thorough physical exam possible given the patient's notable noncompliance, and taking into consideration the historical and current clinical evidence that was before's, the patient at this time shows no clinical signs of acute life-threatening etiology requiring further medical management or intervention. Patient is notably clinically stable, and appropriate for discharge into police custody. My recommendations to police and mental health officers at bedside is that the patient remains in a monitored room until she has obtained clinical sobriety. At which point we would recommend reassessment by one of the mental health advocates. I have extensively reviewed the treatment plan and discharge instructions with the patient. I have addressed all patient concerns at this time. The patient was made aware of what symptoms to monitor for that would warrant a return to the emergency department. Discussed the plan with the patient, they demonstrate verbal understanding and agreement with our assessment and plan at this time. The documentation in this chart was dictated using [employer] dictation software. Please excuse any dictation errors. HPI General Date/Time Provider Initiated Documentation: 12/03/22 00:32 . HPI Narrative: This is a 32-year-old female with a past medical history of tubal ligation, endometrial ablation, regular alcohol abuse, who presents today for evaluation for medical assessment. Patient was drinking notable amount of alcohol this evening, please were called for disturbance. She was brought to the police facility however while there she told police that she demand medical evaluation because these handcuffs are too tight. Patient was then brought to the emergency department for medical assessment after requesting medical assessment. Patient demonstrates a tirade of expletives towards myself and staff, and is very limited on what she is willing to discuss for history, however she does state that she is here to be medically checked, and have my handcuffs loosened. Patient also states that she refuses to speak with me and answer questions while her mask is on, however she has no challenges launching a notable tirade of expletives towards myself, staff, and the police at bedside. Patient has no other complaints at this time. Related Data Home Medications Medication Instructions Recorded Confirmed ibuprofen 800 mg tablet 800 mg PO Q8H PRN #20 tabs 05/14/20 02/03/22 Previous Rx's Medication Instructions Recorded ibuprofen 800 mg tablet 800 mg PO Q8H PRN #20 tabs 05/14/20 Allergies Allergy/AdvReac Type Severity Reaction Status Date / Time Beta-Blockers Allergy Mild Hives Unverified 07/13/22 04:47 (Beta-Adrenergic Bloc Penicillins Allergy Mild Hives Unverified 07/13/22 04:47 General MARYANN: 3 Review of Systems All systems reviewed & are unremarkable except as noted in HPI and below PFSH All Active Problems (Updated 12/03/22 @ 01:00 by Bob Brock DO) Encounter for medical assessment (Acute) Alcohol intoxication (Acute) Medical History Arthritis Depression Ovarian cyst PTSD (post-traumatic stress disorder) Surgical History H/O section History of bilateral tubal ligation History of endometrial ablation Social History Smoking/Tobacco Use Status: Current every day Tobacco Type: cigarettes Smoking packs per day: 1.5 Smoking cigarettes per day: 30.0 Smoking risk assessment performed?: Yes Alcohol Intake: current Alcohol Intake frequency: a few times a week Drug use: Daily Substance use type: marijuana Do you feel safe at home: Yes Do you feel safe in your relationship?: Yes Additional Social history: homeless Exam Narrative Exam Narrative: 1.Const: Well-nourished, Well-developed, appearing stated age. Notably confrontational. Patient is handcuffed. She is yelling and screaming at all staff, and shows no signs of respiratory distress. 2.Eyes: PERRL, no conjunctival injection, and symmetrical lids. 3.ENT: Atraumatic external nose and ears. Moist MM. Neck: Symmetric, trachea midline, No thyromegaly. There is no evidence of raccoon eyes, chaney sign, CSF rhinorrhea, mastoid tenderness, cranial crepitus, exophthalmos, or hyphema. Patient demonstrates intact dentition with no signs of tooth avulsion or fracture, no signs of jaw deformity, no evidence of a LeFort's fracture, with an intact palate, nose and orbital region. There is no evidence of a nasal septal hematoma. No proptosis. Jaw closes symmetrically. Airway is clear. 4.CVS: +S1/S2, No murmurs or gallops. Peripheral pulses 2+ and equal in all extremities. Brisk capillary refill in all extremities. 5.RESP: Unlabored respiratory effort. Clear to auscultation bilaterally. No wheezes rales or rhonchi 6.GI: Soft, Nontender/Nondistended, No hepatosplenomegaly. No guarding or rebound. 7.MSK: Normocephalic/Atraumatic, Extremities w/o deformity or ttp No cyanosis or clubbing, Normal movement of all extremities. Handcuffs are on, but no evidence of vascular compromise. Brisk capillary refill in all fingers. 8.Skin: Warm, Dry. No rashes or lesions. 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 Sensation grossly intact, no focal neurologic deficits. 10.Psych: (AAO) x3. Appropriate mood and affect, very intoxicated
== END 2022-12-03 01:10 | disposition home or self-care (01) ==
LOC: ER 00:36
PROVIDERS: Emergency Provider Student in an Organized Health Care Education/Training Program
DX: F10.129 Alcohol abuse with intoxication, unspecified (principal); R45.1 Restlessness and agitation; Z53.29 Procedure and treatment not carried out because of patient's decision for other reasons
CPT/HCPCS: 99285; 99283